=== PATIENT | female | born 1990 | race Caucasian/White ===

== ENCOUNTER 2017-03-04 21:50 | Emergency (ER) | payer MEDICAID, OTHER ==
[~2017-03-04] VITALS: Ht 152.4 cm; Wt 79.0 kg
[2017-03-04] MEDS ORDERED: ACETAMINOPHEN 325MG TABLET PO STA (23:11)
[2017-03-04] MEDS ORDERED: SODIUM CHLORIDE 0.9% 1,000 ML IV ONE (23:11)
[2017-03-04 23:48] LABS: HEMATOCRIT. 34.1 % (36.0-48.0); HEMOGLOBIN. 11.7 g/dL (12.0-16.0); MEAN CORPUSCULAR HEMOGLOBIN 28.2 pg (28.0-32.0); MEAN CORPUSCULAR HGB CONC 34.3 g/dL (31.0-37.0); MEAN PLATELET VOLUME 7.7 fl (7.4-10.4); PLATELET 228 x1000/uL (130-400); RED BLOOD CELL COUNT 4.16 mill/uL (4.2-5.4); RED CELL DISTRIBUTION WIDTH 14.2 % (11.6-14.6); WHITE BLOOD COUNT 10.3 x1000/uL (4.5-11.0)
[2017-03-04 23:51] LABS: DIFFERENTIAL COMMENT 1
[2017-03-05 00:03] LABS: ALANINE AMINOTRANSFERASE 71 IU/L (13-61); ALBUMIN 2.7 g/dL (3.4-5.0); ANION GAP 13; CALCIUM 7.5 mg/dL (8.5-10.1); CARBON DIOXIDE 22 mEq/L (21-32); CHLORIDE 107 mEq/L (98-107); INDEX HEMOLYSI 1 (1-3); INDEX ICTERIC 1 (1-4); INDEX LIPEMIC 1 (1-3); UREA NITROGEN BLOOD 14 mg/dL (7-21); eGFR > 60 mL/min (>60)
[2017-03-05 00:24] LABS: CLARITY URINE CLOUDY (CLEAR); COLOR URINE DARK YELLOW (YELLOW); GLUCOSE URINE NEGATIVE (NEGATIVE); KETONES URINE NEGATIVE (NEGATIVE); LEUKOCYTE ESTERASE URINE 2+ (NEGATIVE); NITRITE URINE NEGATIVE (NEGATIVE); OCCULT BLOOD URINE 1+ (NEGATIVE); PROTEIN URINE 2+ (NEGATIVE); SPECIFIC GRAVITY URINE 1.018 (1.005-1.030)
[2017-03-05 00:34] LABS: PLATELET ESTIMATE NORMAL
[2017-03-05 01:01] LABS: WBC URINE 25-50 /hpf (0-2)
[2017-03-05 01:02] LABS: BACTERIA URINE 1+; RBC URINE 0-2 /hpf (0-2); SQUAMOUS EPITHELIAL CELL URINE FEW /lpf (RARE/1+)
[2017-03-05 04:26] VITALS: BP 95/60
[2017-03-05] MEDS ORDERED: CEFTRIAXONE 1 G PREMIX 50 ML IV ONE (04:30)
== END 2017-03-05 06:00 | disposition home or self-care (01) ==
LOC: ER 22:34
DX: R50.9 Fever, unspecified (principal); N95.1 Menopausal and female climacteric states; R51 Headache
CPT/HCPCS: 36415; 71010; 80053; 81001; 81025; 83605; 85025; 87040; 96361; 96365; 99285; J0696; J7030

== ENCOUNTER 2025-07-15 17:52 | Emergency (ER) | payer MEDICAID ==
[~2025-07-15] VITALS: Ht 172.7 cm; Wt 70.0 kg
[2025-07-15 18:25] VITALS: TEMP 37.2; O2SAT 99
[2025-07-15 20:40] LABS: CLARITY URINE CLEAR (CLEAR); COLOR URINE DARK YELLOW (YELLOW); GLUCOSE URINE NEGATIVE (NEGATIVE); KETONES URINE 2+ (NEGATIVE); LEUKOCYTE ESTERASE URINE TRACE (NEGATIVE); NITRITE URINE NEGATIVE (NEGATIVE); OCCULT BLOOD URINE 3+ (NEGATIVE); PH URINE 6.0 (4.5-8.0); PROTEIN URINE 1+ (NEGATIVE); SPECIFIC GRAVITY URINE 1.033 (1.005-1.030); UROBILINOGEN URINE 2.0 E.U./dL (0.2-1.0)
[2025-07-15 20:49] LABS: BACTERIA URINE 1+; MUCUS URINE 1+ /lpf (< = 2+); SQUAMOUS EPITHELIAL CELL URINE 1+ /lpf (RARE/1+)
[2025-07-15 20:56] LABS: BASOPHILS % 0.7 % (0.0-2.0); EOSINOPHILS % 1.7 % (0.0-5.0); HEMATOCRIT. 40.3 % (36.0-48.0); HEMOGLOBIN. 13.9 g/dL (12.0-16.0); LYMPHOCYTES % 23.5 % (20.0-50.0); MEAN PLATELET VOLUME 7.7 fl (7.4-10.4); MONOCYTES % 4.6 % (2.0-8.0); NEUTROPHILS % 69.5 % (40.0-76.0); PLATELET 367 x1000/uL (130-400); RED BLOOD CELL COUNT 4.57 mill/uL (4.2-5.4); RED CELL DISTRIBUTION WIDTH 12.9 % (11.6-14.6)
[2025-07-15 21:09] LABS: CREATININE 0.7 mg/dL (0.6-1.0); UREA NITROGEN BLOOD 6 mg/dL (9-23)
[2025-07-15 21:56] LABS: B-HCG QUANTITATIVE 126951 mIU/mL (<6)
[2025-07-15] MEDS ORDERED: CEFP200T14 MT (22:05)
[2025-07-15 23:07] VITALS: BP 109/62; PULSE 67; RESP 15; O2SAT 100
== END 2025-07-15 23:19 | disposition home or self-care (01) ==
LOC: ER 17:52
DX: O20.0 Threatened abortion (principal); O23.41 Unspecified infection of urinary tract in pregnancy, first trimester; Z3A.11 11 weeks gestation of pregnancy; N39.0 Urinary tract infection, site not specified
CPT/HCPCS: 80048; 81003; 81025; 84702; 85025; 86850; 86900; 86901; 36415; 76801; 76817; 99285; Z7610 ×2; A4606